=== PATIENT | male | born 1935 | race Caucasian/White ===

== ENCOUNTER → 2017-11-27 | Outpatient (CLI) | payer OTHER ==
--- NOTE | 2017-11-27 17:47 | Diagnostic Imaging Report ---
PROCEDURE:X-RAY ABDOMEN - KUB COMPARISON:Patients [facility], CT, CT ABDOMEN/PELVIS WO, 07/28/2017, 15:12. INDICATIONS:CALCULUS OF KIDNEY FINDINGS: There is a non-obstructed bowel-gas pattern. There are no calcifications projected over the renal shadows, expected course of the ureters or bladder. There are no acute osseous abnormalities. The lung bases are clear. Multiple phleboliths project in the pelvis. Degenerative changes of the lumbar spine and SI joints bilaterally, left greater than right. Impression: Nonobstructive bowel gas pattern. No urolithiasis. Filiberto Garza M.D. Dictated by: Filiberto Garza M.D. on 11/27/2017 at 17:48 Electronically approved by: Filiberto Garza M.D. on 11/27/2017 at 17:48
== END ==
LOC: RAD 15:31
PROVIDERS: ATTEND Urology
DX: N20.0 Calculus of kidney (principal)
CPT/HCPCS: 74018